=== PATIENT | female | born 1990 | race Caucasian/White ===

== ENCOUNTER → 2016-06-30 | Outpatient (CLI) | payer BC | END | disposition home or self-care (01) | LOC: LABWHC1 08:43 | PROVIDERS: ATTEND Internal Medicine Endocrinology, Diabetes & Metabolism | DX: E03.8 Other specified hypothyroidism (principal) | CPT/HCPCS: 36415; 84443 ==

== ENCOUNTER → 2016-07-18 | Outpatient (CLI) | payer BC | LOC: LABWHC1 07:14 | PROVIDERS: ATTEND Obstetrics & Gynecology Reproductive Endocrinology | DX: N97.9 Female infertility, unspecified (principal) | CPT/HCPCS: 36415; 84144 ==

== ENCOUNTER → 2016-07-26 | Outpatient (CLI) | payer BC | END | disposition home or self-care (01) | LOC: LABWHC1 16:39 | PROVIDERS: ATTEND Obstetrics & Gynecology Reproductive Endocrinology | DX: N97.9 Female infertility, unspecified (principal); N96 Recurrent pregnancy loss; E28.2 Polycystic ovarian syndrome; Z31.49 Encounter for other procreative investigation and testing | CPT/HCPCS: 36415; 84144 ==

== ENCOUNTER → 2016-08-16 | Outpatient (CLI) | payer BC | END | disposition home or self-care (01) | LOC: LABWHC1 17:01 | PROVIDERS: ATTEND Internal Medicine Endocrinology, Diabetes & Metabolism | DX: E03.9 Hypothyroidism, unspecified (principal) | CPT/HCPCS: 36415; 84443 ==

== ENCOUNTER → 2016-09-07 | Outpatient (CLI) | payer BC | END | disposition home or self-care (01) | LOC: LABWHC1 17:14 | PROVIDERS: ATTEND Obstetrics & Gynecology Reproductive Endocrinology | DX: Z31.49 Encounter for other procreative investigation and testing (principal) | CPT/HCPCS: 36415; 84144 ==

== ENCOUNTER → 2016-12-14 | Outpatient (CLI) | payer BC ==
[2016-12-14 14:06] LABS: HCG,Quantitative Serum <2.4 mIU/mL
[2016-12-14 14:22] LABS: Estradiol 41 pg/mL
== END | disposition home or self-care (01) ==
LOC: LABWHC1 06:55
PROVIDERS: ATTEND Obstetrics & Gynecology Reproductive Endocrinology
DX: Z31.49 Encounter for other procreative investigation and testing (principal)
CPT/HCPCS: 36415; 82670; 84144; 84443; 84702

== ENCOUNTER → 2016-12-20 | Outpatient (CLI) | payer BC | END | disposition home or self-care (01) | LOC: LABWHC1 15:43 | PROVIDERS: ATTEND Internal Medicine Endocrinology, Diabetes & Metabolism | DX: E03.9 Hypothyroidism, unspecified (principal) | CPT/HCPCS: 36415; 84443 ==

== ENCOUNTER → 2017-01-30 | Outpatient (CLI) | payer BC ==
[2017-01-30 15:29] LABS: Estradiol 1033.2 pg/mL
== END | disposition home or self-care (01) ==
LOC: LABWHC1 06:50
PROVIDERS: ATTEND Obstetrics & Gynecology Reproductive Endocrinology
DX: Z31.49 Encounter for other procreative investigation and testing (principal)
CPT/HCPCS: 36415; 82670; 84144

== ENCOUNTER → 2017-02-06 | Outpatient (CLI) | payer BC ==
[2017-02-06 15:55] LABS: Estradiol 36.1 pg/mL
== END | disposition home or self-care (01) ==
LOC: LABWHC1 09:33
PROVIDERS: ATTEND Obstetrics & Gynecology Reproductive Endocrinology
DX: Z31.49 Encounter for other procreative investigation and testing (principal)
CPT/HCPCS: 36415; 82670; 84144; 84443; 84702

== ENCOUNTER → 2017-04-07 | Outpatient (CLI) | payer OTHER | END | disposition home or self-care (01) | LOC: LABWHC1 10:21 | PROVIDERS: ATTEND Internal Medicine Endocrinology, Diabetes & Metabolism | DX: E03.9 Hypothyroidism, unspecified (principal) | CPT/HCPCS: 36415; 84443 ==

== ENCOUNTER → 2017-06-19 | Outpatient (CLI) | payer OTHER | END | disposition home or self-care (01) | LOC: LABWHC1 10:26 | PROVIDERS: ATTEND Internal Medicine Endocrinology, Diabetes & Metabolism | DX: E03.9 Hypothyroidism, unspecified (principal) | CPT/HCPCS: 36415; 84443 ==

== ENCOUNTER → 2017-11-17 | Outpatient (CLI) | payer OTHER | END | disposition home or self-care (01) | LOC: LABWHC1 08:51 | PROVIDERS: ATTEND Internal Medicine Endocrinology, Diabetes & Metabolism | DX: E03.8 Other specified hypothyroidism (principal) | CPT/HCPCS: 36415; 84443 ==

== ENCOUNTER → 2017-11-30 | Outpatient (CLI) | payer OTHER ==
[2017-11-30 15:09] LABS: HCT 38.4 % (34.0-46.0); HGB 12.2 gm/dL (11.4-16.0); MCH 28.2 pg (25.0-35.0); MCHC 31.8 g/dL (31.0-37.0); MCV 88.8 fL (80.0-100.0); Mean Platelet Volume 6.7; Platelet Count 365 k/uL (150-450); RBC 4.33 m/uL (3.80-5.40); RDW 12.9 % (11.5-15.5); WBC 8.8 k/uL (3.8-10.6)
[2017-11-30 15:20] LABS: Glucose 94 mg/dL (74-99)
[2017-11-30 16:01] LABS: Appearance,Urine Clear (Clear); Bilirubin,Urine Negative (Negative); Blood,Urine Negative (Negative); Color,Urine Light Yellow; Glucose,Urine (UA) Negative (Negative); Ketones,Urine Negative (Negative); Leukocyte Esterase,Urine Negative (Negative); Nitrite,Urine Negative (Negative); PH, Urine 5.5 (5.0-8.0); Protein,Urine Negative (Negative); Specific Gravity,Urine 1.008 (1.001-1.035); Urobilinogen,Urine <2.0 mg/dL (<2.0)
[2017-11-30 21:10] LABS: HIV AB P24 Non-Reactive (Non-Reactive); HIV P24 AG Non-Reactive (Non-Reactive)
[2017-12-01 06:55] LABS: Toxoplasma Antibody (IgG) <3.0 IU/mL (<7.2); Toxoplasma Antibody (IgM) <3.0 AU/mL (<8.0)
== END | disposition home or self-care (01) ==
LOC: LABWHC1 14:22
PROVIDERS: ATTEND Obstetrics & Gynecology
DX: Z34.90 Encounter for supervision of normal pregnancy, unspecified, unspecified trimester (principal); Z3A.00 Weeks of gestation of pregnancy not specified
CPT/HCPCS: 36415; 81003; 82565; 82947; 85027; 86777; 86778; 86780; 86850; 86900; 86901; 87086; 87340; 87390

== ENCOUNTER → 2017-12-15 | Outpatient (CLI) | payer OTHER ==
[2017-12-15 16:07] LABS: T4, Free (Free Thyroxine) 1.18 ng/dL (0.78-2.19)
== END | disposition home or self-care (01) ==
LOC: LABWHC1 15:10
PROVIDERS: ATTEND Obstetrics & Gynecology
DX: Z34.90 Encounter for supervision of normal pregnancy, unspecified, unspecified trimester (principal); E03.8 Other specified hypothyroidism; Z3A.00 Weeks of gestation of pregnancy not specified
CPT/HCPCS: 36415; 84439; 84443; 86762; 87340

== ENCOUNTER → 2018-01-11 | Outpatient (CLI) | payer OTHER ==
[2018-01-11 14:23] LABS: T4, Free (Free Thyroxine) 1.1 ng/dL (0.78-2.19)
== END | disposition home or self-care (01) ==
LOC: LABWHC1 10:50
PROVIDERS: ATTEND Internal Medicine Endocrinology, Diabetes & Metabolism
DX: E03.8 Other specified hypothyroidism (principal)
CPT/HCPCS: 36415; 84439; 84443

== ENCOUNTER → 2018-02-05 | Outpatient (CLI) | payer OTHER | LOC: LABWHC1 13:36 | PROVIDERS: ATTEND Internal Medicine Endocrinology, Diabetes & Metabolism | DX: E03.9 Hypothyroidism, unspecified (principal) | CPT/HCPCS: 36415; 84443 ==

== ENCOUNTER → 2018-03-09 | Outpatient (CLI) | payer OTHER | END | disposition home or self-care (01) | LOC: LABWHC1 10:58 | PROVIDERS: ATTEND Internal Medicine Endocrinology, Diabetes & Metabolism | DX: E03.9 Hypothyroidism, unspecified (principal) | CPT/HCPCS: 36415; 84443 ==

== ENCOUNTER → 2018-04-30 | Outpatient (CLI) | payer OTHER | LOC: LABWHC1 15:21 | PROVIDERS: ATTEND Internal Medicine Endocrinology, Diabetes & Metabolism | DX: E03.9 Hypothyroidism, unspecified (principal) | CPT/HCPCS: 36415; 84443 ==

== ENCOUNTER 2018-05-13 11:47 | Inpatient (IN) | payer OTHER ==
[2018-05-13] MEDS ORDERED: ACETAMINOPHEN TAB 500 MG TAB PO STA (12:28)
[2018-05-13] MEDS ORDERED: SODIUM CHLORIDE 0.9% 1,000 ML IV STA (12:28)
--- NOTE | 2018-05-13 12:35 | ED ---
Pediatric Fever HPI - General Chief Complaint: Fever Stated Complaint: High Heart Rate, Shaky Time Seen by Provider: 05/13/18 11:57 Source: patient Mode of arrival: ambulatory Limitations: no limitations - History of Present Illness Initial Comments: 27-year-old female patient presents to emergency department today with chief complaint of shaking chills, elevated heart rate, and fever. Patient states her temperature was 102.0F at home. States that for the last couple of days she has felt feverish. She is 33.5 weeks with twins. She is having some lower abdominal discomfort and low back pain but she states this has been going on for weeks. States that she has had decreased movement today. States that she has had frequent urination of small amounts. Patient does have history of kidney infection. She denies any flank pain or hematuria. Denies any nausea or vomiting. Patient has nasal congestion and cough, states that she has had this since becoming . States that she does have production of yellow sputum. Patient denies any recent rash, shortness breath, chest pain, abdominal pain, diarrhea, constipation, numbness, tingling, dizziness, weakness , headache, visual changes, or any other complaints. - Related Data Home Medications Medication Instructions Recorded Confirmed Levothyroxine Sodium [Tirosint] 112 mcg PO DAILY 05/13/18 05/13/18 Bjy-Hpob-Jyunj Acid 1 tab PO HS 05/13/18 05/13/18 [-U Capsule (formulary)] metFORMIN HCL 500 mg PO BID 05/13/18 05/13/18 Allergies Allergy/AdvReac Type Severity Reaction Status Date / Time No Known Allergies Allergy Verified 05/13/18 12:18 Review of Systems ROS Statement: Those systems with pertinent positive or pertinent negative responses have been documented in the HPI. ROS Other: All systems not noted in ROS Statement are negative. Past Medical History Past Medical History: No Reported History History of Any Multi-Drug Resistant Organisms: None Reported Additional Past Surgical History / Comment(s): reproductive surgery for fetility treatment Past Psychological History: No Psychological Hx Reported Smoking Status: Never smoker Past Alcohol Use History: None Reported Past Drug Use History: None Reported General Exam Limitations: no limitations General appearance: alert, in no apparent distress, other (This is a well- developed, well-nourished adult female patient in no acute distress. Vital signs upon presentation are temperature 98.3F, pulse 119, respirations 18, blood pressure 115/76, pulse ox 97% on room air.) Eye exam: Present: normal appearance, PERRL, EOMI. Absent: scleral icterus, conjunctival injection, periorbital swelling ENT exam: Present: normal exam, normal oropharynx, mucous membranes moist Respiratory exam: Present: normal lung sounds bilaterally. Absent: respiratory distress, wheezes, rales, rhonchi, stridor Cardiovascular Exam: Present: normal rhythm, tachycardia, normal heart sounds. Absent: systolic murmur, diastolic murmur, rubs, gallop, clicks GI/Abdominal exam: Present: normal bowel sounds, other (Gravid abdomen). Absent : distended, tenderness, guarding, rebound, rigid Neurological exam: Present: alert, oriented X3, CN II-XII intact Psychiatric exam: Present: normal affect, normal mood Skin exam: Present: warm, dry, intact, normal color. Absent: rash Course Vital Signs 05/13/18 11:49 Temperature 98.3 F Pulse Rate 119 H Respiratory 18 Rate Blood Pressure 115/76 O2 Sat by Pulse 97 Oximetry Medical Decision Making - Medical Decision Making 27-year-old female patient who is 33.5 weeks with a twin gestation presents to the emergency department today for evaluation of shaking, fever, chills. She is reporting voiding in small frequent amounts of urine. She is reporting lower abdominal pressure and low back pain which has been going on for weeks. Labs reviewed and did reveal white blood cell count of 14.3, neutrophil count of 12, AST and a mildly elevated at 51 and 61 respectively. Alkaline phosphatase was 146. Urinalysis showed a turbid appearance with 1+ protein, small, blood, large leukocyte esterase, 29 red blood cells, greater 182 white blood cells, few white blood cell clumps, 57 squamous epithelial cells , rare bacteria, and rare mucous. Influenza negative. heart tones for both fetuses were within normal ranges. We did obtain ultrasound. Patient was started on Rocephin IV. She'll be admitted to Dr. Branch with OB on consult. Patient's OBGYN is Dr. Lewis at [facility], phone number: [phone], he is comfortable having her treated here, but will be available by phone if necessary. I did discuss findings and results, plans with the patient she is agreeable. - Lab Data Result diagrams: 05/13/18 13:08 05/13/18 13:08 Lab Results 05/13/18 05/13/18 05/13/18 Range/Units 12:00 13:08 13:08 WBC 14.3 H (3.8-10.6) k/uL RBC 4.26 (3.80-5.40) m/uL Hgb 11.7 (11.4-16.0) gm/dL Hct 36.4 (34.0-46.0) % MCV 85.6 (80.0-100.0) fL MCH 27.4 (25.0-35.0) pg MCHC 32.0 (31.0-37.0) g/dL RDW 14.1 (11.5-15.5) % Plt Count 321 (150-450) k/uL Neutrophils % 84 % Lymphocytes % 9 % Monocytes % 5 % Eosinophils % 0 % Basophils % 0 % Neutrophils # 12.0 H (1.3-7.7) k/uL Lymphocytes # 1.3 (1.0-4.8) k/uL Monocytes # 0.7 (0-1.0) k/uL Eosinophils # 0.1 (0-0.7) k/uL Basophils # 0.0 (0-0.2) k/uL Sodium 135 L (137-145) mmol/L Potassium 4.4 (3.5-5.1) mmol/L Chloride 108 H (98-107) mmol/L Carbon Dioxide 19 L (22-30) mmol/L Anion Gap 8 mmol/L BUN 8 (7-17) mg/dL Creatinine 0.59 (0.52-1.04) mg/dL Est GFR (CKD-EPI)AfAm >90 (>60 ml/min/1.73 sqM) Est GFR (CKD-EPI)NonAf >90 (>60 ml/min/1.73 sqM) Glucose 97 (74-99) mg/dL Plasma Lactic Acid Sylvester (0.7-2.0) mmol/L Calcium 9.4 (8.4-10.2) mg/dL Total Bilirubin 0.5 (0.2-1.3) mg/dL AST 51 H (14-36) U/L ALT 61 H (9-52) U/L Alkaline Phosphatase 146 H (38-126) U/L Total Protein 6.0 L (6.3-8.2) g/dL Albumin 3.0 L (3.5-5.0) g/dL Urine Color Yellow Urine Appearance Turbid H (Clear) Urine pH 6.0 (5.0-8.0) Ur Specific [place] 1.013 (1.001-1.035) Urine Protein 1+ H (Negative) Urine Glucose (UA) Negative (Negative) Urine Ketones Negative (Negative) Urine Blood Small H (Negative) Urine Nitrite Negative (Negative) Urine Bilirubin Negative (Negative) Urine Urobilinogen <2.0 (<2.0) mg/dL Ur Leukocyte Esterase Large H (Negative) Urine RBC 29 H (0-5) /hpf Urine WBC >182 H (0-5) /hpf Urine WBC Clumps Few H (None) /hpf Ur Squamous Epith Cells 57 H (0-4) /hpf Urine Bacteria Rare H (None) /hpf Urine Mucus Rare H (None) /hpf Influenza Type A RNA (Not Detectd) Influenza Type B (PCR) (Not Detectd) 05/13/18 05/13/18 Range/Units 13:08 13:12 WBC (3.8-10.6) k/uL RBC (3.80-5.40) m/uL Hgb (11.4-16.0) gm/dL Hct (34.0-46.0) % MCV (80.0-100.0) fL MCH (25.0-35.0) pg MCHC (31.0-37.0) g/dL RDW (11.5-15.5) % Plt Count (150-450) k/uL Neutrophils % % Lymphocytes % % Monocytes % % Eosinophils % % Basophils % % Neutrophils # (1.3-7.7) k/uL Lymphocytes # (1.0-4.8) k/uL Monocytes # (0-1.0) k/uL Eosinophils # (0-0.7) k/uL Basophils # (0-0.2) k/uL Sodium (137-145) mmol/L Potassium (3.5-5.1) mmol/L Chloride (98-107) mmol/L Carbon Dioxide (22-30) mmol/L Anion Gap mmol/L BUN (7-17) mg/dL Creatinine (0.52-1.04) mg/dL Est GFR (CKD-EPI)AfAm (>60 ml/min/1.73 sqM) Est GFR (CKD-EPI)NonAf (>60 ml/min/1.73 sqM) Glucose (74-99) mg/dL Plasma Lactic Acid Sylvester 1.7 (0.7-2.0) mmol/L Calcium (8.4-10.2) mg/dL Total Bilirubin (0.2-1.3) mg/dL AST (14-36) U/L ALT (9-52) U/L Alkaline Phosphatase (38-126) U/L Total Protein (6.3-8.2) g/dL Albumin (3.5-5.0) g/dL Urine Color Urine Appearance (Clear) Urine pH (5.0-8.0) Ur Specific [place] (1.001-1.035) Urine Protein (Negative) Urine Glucose (UA) (Negative) Urine Ketones (Negative) Urine Blood (Negative) Urine Nitrite (Negative) Urine Bilirubin (Negative) Urine Urobilinogen (<2.0) mg/dL Ur Leukocyte Esterase (Negative) Urine RBC (0-5) /hpf Urine WBC (0-5) /hpf Urine WBC Clumps (None) /hpf Ur Squamous Epith Cells (0-4) /hpf Urine Bacteria (None) /hpf Urine Mucus (None) /hpf Influenza Type A RNA Not Detected (Not Detectd) Influenza Type B (PCR) Not Detected (Not Detectd) Disposition Clinical Impression: Pyelonephritis, Third trimester Disposition: ADMITTED IP TO THIS [facility] Condition: Serious Referrals: Brad Ballard MD [Primary Care Provider] - 1-2 days Decision to Admit Reason: Admit from EC Decision Date: 05/13/18 Decision Time: 15:01
[2018-05-13 13:22] LABS: Appearance,Urine Turbid (Clear); Bacteria,Urine Rare /hpf; Bilirubin,Urine Negative (Negative); Blood,Urine Small (Negative); Color,Urine Yellow; Glucose,Urine (UA) Negative (Negative); Ketones,Urine Negative (Negative); Leukocyte Esterase,Urine Large (Negative); Mucus,Urine Rare /hpf; Nitrite,Urine Negative (Negative); Protein,Urine 1+ (Negative); RBC,Urine 29 /hpf (0-5); Specific Gravity,Urine 1.013 (1.001-1.035); Squamous Epithelial Cell,Urine 57 /hpf (0-4); Urobilinogen,Urine <2.0 mg/dL (<2.0); WBC,Urine >182 /hpf (0-5)
[2018-05-13 13:32] LABS: Basophils % (A) 0 %; Eosinophils # (A) 0.1 k/uL (0-0.7); Eosinophils % (A) 0 %; HCT 36.4 % (34.0-46.0); HGB 11.7 gm/dL (11.4-16.0); Lymphocytes # (A) 1.3 k/uL (1.0-4.8); Lymphocytes % (A) 9 %; MCH 27.4 pg (25.0-35.0); MCV 85.6 fL (80.0-100.0); Mean Platelet Volume 7.6; Monocytes # (A) 0.7 k/uL (0-1.0); Monocytes % (A) 5 %; Neutrophils % (A) 84 %; Platelet Count 321 k/uL (150-450); RBC 4.26 m/uL (3.80-5.40); RDW 14.1 % (11.5-15.5); WBC 14.3 k/uL (3.8-10.6)
[2018-05-13 13:40] LABS: ALT 61 U/L (9-52); AST 51 U/L (14-36); Alkaline Phosphatase 146 U/L (38-126); Anion Gap 8 mmol/L; Blood Urea Nitrogen 8 mg/dL (7-17); Calcium 9.4 mg/dL (8.4-10.2); Carbon Dioxide 19 mmol/L (22-30); Chloride 108 mmol/L (98-107); Glucose 97 mg/dL (74-99); Potassium 4.4 mmol/L (3.5-5.1); Sodium 135 mmol/L (137-145); Total Bilirubin 0.5 mg/dL (0.2-1.3)
[2018-05-13] MEDS ORDERED: cefTRIAXone 2,000 MG in SODIUM CHLORIDE 0.9% 100 ML IVPB STA (14:18)
[2018-05-13] MEDS ORDERED: NALOXONE 0.4 MG/ML 1 ML VIAL IV PRN (14:58)
[2018-05-13] MEDS: SODIUM CHLORIDE 0.9% 1,000 ML IV SCH (15:34)
--- NOTE | 2018-05-13 15:47 | US ---
EXAMINATION TYPE: US OB >= 14 wk twins DATE OF EXAM: 05/13/2018 COMPARISON: NONE CLINICAL HISTORY: Pain. UTI, fever GESTATIONAL AGE / DATING Physician Established: (34 weeks/1 days) EDC: 06/27/2018 Dates by LMP: (34 weeks/1 days) EDC: 06/27/2018 Dates by First Scan: No previous at this facility Dates by Current Scan for Baby A: (33 weeks/4 days) EDC: 06/23/2018 Dates by Current Scan for Baby B: (32 weeks/6 days) EDC: 07/02/2018 GENERAL TWIN SURVEY TWIN A LOCATION in regards to maternal abd: Left TWIN B LOCATION in regards to maternal abd: Right MEMBRANE SEEN: Yes CERVICAL LENGTH (transabdominal; norm > 3.0cm): 3.7 cm TWIN A: SURVEY/BIOMETRY PLACENTA: Fundal PREVIA: No previa KIKA:? 15.5 cm?Normal PRESENTATION: Vertex LIE: Longitudinal BPD: 8.8 cm 35 weeks / 3 days HC: 31.7 cm 35 weeks / 4 days AC: 29.9 cm 33 weeks / 6 days FL: 6.5 cm 33 weeks / 5 days ESTIMATED WEIGHT IN GRAMS: 2357 grams ESTIMATED WEIGHT IN LBS/OZS: 5 lbs. 3 oz. WEIGHT PERCENTAGE BASED ON ESTABLISHED DATES: 59.8% HC/AC: 1.06 Normal FL/AC: 21.86 Normal HEART RATE: 155 bpm RHYTHM: Normal TWIN B: SURVEY/BIOMETRY PRESENTATION: Vertex LIE: Longitudinal BPD: 8.0 cm 32 weeks / 1 days HC: 30.9 cm 34 weeks / 3 days AC: 29.6 cm 33 weeks / 4 days FL: 6.3 cm 32 weeks / 5 days ESTIMATED WEIGHT IN GRAMS: 2161 grams ESTIMATED WEIGHT IN LBS/OZS: 4 lbs. 12 oz. WEIGHT PERCENTAGE BASED ON ESTABLISHED DATES: 33.5% HC/AC: 1.05 Normal FL/AC: 21.4 Normal HEART RATE: 146 bpm RHYTHM: Normal Viable twin IUP, measurements consist with dates. IMPRESSION: No complicating process seen.
[2018-05-13 18:10] VITALS: BMI 33.5
--- NOTE | 2018-05-13 19:00 | P.OBCN ---
History of Present Illness Consult date: 05/13/18 Reason for consult: medical complication (Pyelonephritis in -twin gestation) Chief complaint: fever, flank pain History of present illness: 27 year old at 33 weeks 4 days with twin gestation [facility] with right flank pain and fever up to 102* at home. She also was having the shakes. She has had pyelonephritis in the past with fever/chills like this and knew to come to seek treatment. She is feeling movement, not feeling contractions but is having occasional tightening. No vaginal bleeding or loss of fluid. heart tones show baselines of 130's moderate variability and reactive NSTs. US was one and the babies are vertex; A is 5#3oz, B is 4#12 oz. Review of Systems All systems: negative Constitutional: Reports chills, Reports fever Eyes: denies blurred vision, denies pain Ears, nose, mouth and throat: Denies headache, Denies sore throat Cardiovascular: Denies chest pain, Denies shortness of breath Respiratory: Denies cough Gastrointestinal: Denies abdominal pain, Denies diarrhea, Denies nausea, Denies vomiting Genitourinary: Denies dysuria, Denies hematuria Musculoskeletal: Reports low back pain, Denies myalgias Integumentary: Denies pruritus, Denies rash Neurological: Denies numbness, Denies weakness Psychiatric: Denies anxiety, Denies depression Endocrine: Reports weight change, Denies fatigue Past Medical History Past Medical History: Thyroid Disorder Additional Past Medical History / Comment(s): hx PCOS. OB history: These twins were conceived via IVF and she sees an OB out of [facility]. bloodtype B +. History of Any Multi-Drug Resistant Organisms: None Reported Additional Past Surgical History / Comment(s): reproductive surgery for fetility treatment; laparoscopic tuboplasty, cyst removal, laser vaporization of endometriosis, removal of uterine septum. Past Psychological History: No Psychological Hx Reported Smoking Status: Never smoker Past Alcohol Use History: None Reported Past Drug Use History: None Reported - Past Family History Father Family Medical History: No Reported History Medications and Allergies Home Medications Medication Instructions Recorded Confirmed Type Levothyroxine Sodium [Tirosint] 112 mcg PO AC-BRKFST 05/13/18 05/13/18 History Tbg-[id number]-[id number] Acid 1 tab PO HS 05/13/18 05/13/18 History [-U Capsule (formulary)] metFORMIN HCL 1,000 mg PO HS 05/13/18 05/13/18 History Allergies Allergy/AdvReac Type Severity Reaction Status Date / Time No Known Allergies Allergy Verified 05/13/18 18:03 Exam Osteopathic Statement: *. No significant issues noted on an osteopathic structural exam other than those noted in the History and Physical/Consult. Vital Signs Temp Pulse Pulse Resp BP BP Pulse Ox 05/13/18 18:04 98.2 F 87 18 121/75 99 05/13/18 16:41 97.4 F L 87 18 121/77 98 05/13/18 15:50 97.6 F 05/13/18 11:49 98.3 F 119 H 18 115/76 97 Intake and Output 05/13/18 05/13/18 05/13/18 06:59 14:59 22:59 Other: Weight 88.451 kg 88.451 kg Heart: Regular rate and rhythm Lungs: Clear to auscultation bilaterally Abdomen: Soft, nontender Extremities: Negative Homans sign Results Result Diagrams: 05/13/18 13:08 05/13/18 13:08 Abnormal Lab Results - Last 24 Hours (Table) 05/13/18 05/13/18 05/13/18 Range/Units 12:00 13:08 13:08 WBC 14.3 H (3.8-10.6) k/uL Neutrophils # 12.0 H (1.3-7.7) k/uL Sodium 135 L (137-145) mmol/L Chloride 108 H (98-107) mmol/L Carbon Dioxide 19 L (22-30) mmol/L AST 51 H (14-36) U/L ALT 61 H (9-52) U/L Alkaline Phosphatase 146 H (38-126) U/L Total Protein 6.0 L (6.3-8.2) g/dL Albumin 3.0 L (3.5-5.0) g/dL Urine Appearance Turbid H (Clear) Urine Protein 1+ H (Negative) Urine Blood Small H (Negative) Ur Leukocyte Esterase Large H (Negative) Urine RBC 29 H (0-5) /hpf Urine WBC >182 H (0-5) /hpf Urine WBC Clumps Few H (None) /hpf Ur Squamous Epith Cells 57 H (0-4) /hpf Urine Bacteria Rare H (None) /hpf Urine Mucus Rare H (None) /hpf Microbiology - Last 24 Hours (Table) 05/13/18 12:00 Urine Culture - Preliminary Urine,Voided Assessment and Plan (1) Pyelonephritis Current Visit: Yes Status: Acute Code(s): N12 - TUBULO-INTERSTITIAL NEPHRITIS, NOT SPCF ACUTE OR CHRONIC SNOMED Code(s): 31309142 (2) Twin gestation in third trimester Current Visit: Yes Status: Acute Code(s): O30.003 - TWIN PREG, UNSP NUM PLCNTA & AMNIO SACS, THIRD TRIMESTER SNOMED Code(s): 00536660 Plan: 1. Daily NST 2. Continue Rocephin 3. Weight urine and blood cultures 4. Treat fever with Tylenol or Ofirmev as needed 5. Regular diet 6. KVO IV fluids
[2018-05-13] MEDS: PRENATAL VIT-IRON-FOLIC ACID 1 EACH CAP PO SCH (21:01)
[2018-05-13] MEDS: metFORMIN 500 MG TAB PO SCH (21:01)
[2018-05-13] MEDS ORDERED: AMPICILLIN 2,000 MG in SODIUM CHLORIDE 0.9% 100 ML IVPB STA (23:51)
--- NOTE | 2018-05-14 00:07 | HP ---
HISTORY AND PHYSICAL DATE OF SERVICE: 05/13/2018. DATE OF ADMISSION: 05/13/2018. PRESENTING COMPLAINT: Fever. HISTORY OF PRESENTING COMPLAINT: This is a pleasant 27-year-old patient of Dr. Ballard whose chronic stable medical conditions include twin at 33 weeks, hypothyroidism, and polycystic ovarian syndrome for which she takes metformin. The patient had IVF induced twins that are doing well in the 33rd week of . The patient is followed by Dr. Aguilar out of [facility]. The patient for a day or so started just feeling unwell and had a temperature, initially 98.5 but took it again in the wheel shop supervisor and it came up to 102. The patient started shaking and feeling cold. At baseline the patient has congestion which is not new for her. The patient normally has urinary frequency again, which is not new for her. The patient presented to the ER. The patient was found to have rather infected-appearing urine. Infectious Disease and BENEFITS SALES CONSULTANT was consulted. The patient was started on IV ceftriaxone and admitted for the same. The patient otherwise has had a rather healthy . REVIEW OF SYSTEMS: CONSTITUTIONAL: Fever, chills. HEENT: None. RESPIRATORY: None. CARDIOVASCULAR: None. GASTROINTESTINAL: None. GENITOURINARY: As above. MUSCULOSKELETAL: None. DERMATOLOGIC: None. HEMATOLOGIC: None. PSYCHIATRY: None. NEUROLOGIC: None. PAST MEDICAL HISTORY: Polycystic ovarian syndrome, hypothyroidism, twin from IVF. PAST SURGICAL HISTORY: Laparoscopy, tuboplasty, cyst removed, laser vaporization of endometriosis, removal of uterine septum. SOCIAL HISTORY: Patient is . Does not smoke or drink alcohol or use any recreational drugs. 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 FAMILY HISTORY: Reviewed, noncontributory to presentation. HOME MEDICATIONS: 1. Metformin 1000 mg at bedtime. 2. 112 mcg before breakfast. 3. capsule 1 tablet p.o. at bedtime. ALLERGIES: None. PHYSICAL EXAMINATION: Temperature 98.3, pulse 109, respirations 18, blood pressure 105/76, pulse ox 97% on room air. The patient did record a temperature of 102 at home. GENERAL APPEARANCE: Well built, BMI. 33.5, lying in bed, awake. EYES: Pupils equal. Conjunctivae normal. HEENT: External nose and ears normal. NECK: JVD not raised. Mass not palpable. Respiratory effort normal. LUNGS: Fair air entry. CARDIOVASCULAR: First and second sounds normal. No edema. ABDOMEN: Distended with striae gravidarum. Some tenderness in the flanks. LYMPHATIC; No lymph node palpable. PSYCHIATRY: Alert and oriented x3. Mood and affect normal. NEUROLOGIC: Pupils equal. Cranial nerves grossly intact. Power and sensation grossly intact. INVESTIGATIONS: White count 14.8, hemoglobin 9.7, left shift. Potassium 4.4. BUN and creatinine normal. AST 51, ALT 61, albumin 3. UA positive for leukocyte esterase, WBC, 57. ultrasound no complications reported. ASSESSMENT: 1. Acute urinary tract infection from cystitis with questionable pyelonephritis. There is some tenderness in the flank and could be due to itself. 2. Twin at 33 weeks from in vitro fertilization. 3. Hypothyroidism. 4. Polycystic ovarian syndrome. PLAN: Patient is on IV ceftriaxone. ID was consulted from the ER. The patient is given some IV fluids. Home medications will be resumed. Also consultation was made to horizontal boring mill operator on-call. Care was discussed with the patient, questions were answered. Repeat labs in the morning and see how the patient fares. We will also repeat a CMP. MMODL / IJN: [id number] /
[2018-05-14] MEDS: BETAMET ACET-BETAMETH SOD PHOS 6 MG/ML VIAL IM SCH ×2 (00:19→19:10)
[2018-05-14] MEDS ORDERED: SIMETHICONE 80 MG CHEWABLE PO PRN (01:15)
[2018-05-14] MEDS ORDERED: ZOLPIDEM 5 MG TAB PO PRN (01:15)
[2018-05-14] MEDS ORDERED: BENZOCAINE/MENTHOL SPRAY 1 GM/SPRAY AEROSOL TOPICAL PRN (01:15)
[2018-05-14] MEDS ORDERED: LANOLIN CREAM 5 GM TUBE TOPICAL PRN (01:15)
[2018-05-14] MEDS ORDERED: diphenhydrAMINE 50 MG CAP PO PRN (01:15)
[2018-05-14] MEDS ORDERED: diphenhydrAMINE 50 MG/ML 1 ML VIAL IVP PRN ×2 (01:15)
[2018-05-14] MEDS ORDERED: OXYTOCIN 20 UNITS/1000 ML NS 1,000 ML IV SCH (01:15)
[2018-05-14] MEDS ORDERED: IBUPROFEN 600 MG TAB PO PRN (01:15)
[2018-05-14] MEDS ORDERED: HYDROCORTISONE 2.5% RECTAL CREAM 30 GM TUBE RECTAL PRN (01:15)
[2018-05-14] MEDS ORDERED: WITCH HAZEL 1 EACH MED..PAD TOPICAL PRN (01:15)
[2018-05-14] MEDS ORDERED: diphenhydrAMINE 25 MG CAP PO PRN (01:15)
[2018-05-14] MEDS: ACETAMINOPHEN TAB 325 MG TAB PO PRN (01:23)
--- NOTE | 2018-05-14 01:26 | P.PROBDLV ---
Vaginal Delivery Note - . Vaginal Delivery Note: 27-year-old presented at 33 weeks and 4 days with twin gestation. She was admitted for pyelonephritis. While here she went into labor. Her cervix was 4-5 cm dilated, her percent effaced, and -2 station when she started complaining of painful contractions. She is treasure every few minutes. heart tones were tachycardic in the 180s. Amniotomy was performed and within 15 minutes her cervix was completely dilated at 00:33. She pushed a few times and baby A delivered over intact perineum at 00:38 a.m. Head delivered OA , anterior shoulder delivered gentle downward guidance followed by posterior shoulder and rest of body. Nose mouth bulb suctioned, cord clamped and cut, handed off to waiting nurses and chair mender. Apgars 4 at 1 minute, 5 at 5 minutes and 7 at 10 minutes. I then [place] to see if the baby B was still vertex and she was. She was and -2 station and I had her push down. Amniotomy was performed at this time. When a Contraction came she pushed once delivered a viable male B infant over intact perineum at 00:43 a.m. Head delivered OA, anterior shoulder delivered gentle downward guidance of the posterior shoulder and rest of body. Nose and mouth bulb suctioned, cord clamped and cut, infant handed to waiting nurses and chair mender. Apgars 4 at 1 minute, 6 at 5 minutes , and 7 at 10 minutes. The placentas were delivered spontaneously, intact with three-vessel cord at 00:49 a.m. Vagina, cervix, and perineum were inspected. First-degree midline laceration was repaired with 3-0 Vicryl. The patient was noted to be bleeding significantly. I did Express quite a few fluid clots and give Methergine 0.2 mg IM. This improved her bleeding. EBL 500 mL.
[2018-05-14] MEDS: ACETAMINOPHEN IV (For NPO) 1,000 MG in EMPTY BAG 1 BAG IVPB SCH ×4 (01:52→20:08)
[2018-05-14] MEDS: metroNIDAZOLE-NS PMX 500 MG in SALINE 1 100ML.BAG IVPB SCH ×3 (02:03→17:52)
[2018-05-14 02:30] LABS: HCT 31.1 % (34.0-46.0); HGB 10.1 gm/dL (11.4-16.0); MCH 28.2 pg (25.0-35.0); MCHC 32.3 g/dL (31.0-37.0); MCV 87.2 fL (80.0-100.0); Mean Platelet Volume 8.2; Platelet Count 207 k/uL (150-450); RBC 3.57 m/uL (3.80-5.40); RDW 14.2 % (11.5-15.5); WBC 7.8 k/uL (3.8-10.6)
[2018-05-14] MEDS: SODIUM CHLORIDE 0.9% 1,000 ML IV SCH (03:41)
[2018-05-14] MEDS ORDERED: AMPICILLIN 1,000 MG in SODIUM CHLORIDE 0.9% 50 ML IVPB SCH ×3 (04:00)
[2018-05-14 06:27] LABS: Basophils # (A) 0.1 k/uL (0-0.2); Basophils % (A) 0 %; Eosinophils # (A) 0.1 k/uL (0-0.7); Eosinophils % (A) 1 %; HCT 28.4 % (34.0-46.0); HGB 9.2 gm/dL (11.4-16.0); Lymphocytes # (A) 0.5 k/uL (1.0-4.8); Lymphocytes % (A) 2 %; MCH 27.9 pg (25.0-35.0); MCHC 32.5 g/dL (31.0-37.0); Mean Platelet Volume 9.3; Monocytes # (A) 0.6 k/uL (0-1.0); Monocytes % (A) 3 %; Neutrophils # (A) 22.8 k/uL (1.3-7.7); Neutrophils % (A) 94 %; Platelet Count 219 k/uL (150-450); RDW 14.3 % (11.5-15.5); WBC 24.3 k/uL (3.8-10.6)
[2018-05-14 06:43] LABS: Albumin 2.2 g/dL (3.5-5.0); Calcium 8.5 mg/dL (8.4-10.2); Potassium 3.5 mmol/L (3.5-5.1); Total Bilirubin 0.3 mg/dL (0.2-1.3); Total Protein 4.7 g/dL (6.3-8.2)
[2018-05-14] MEDS: SENNOSIDES-DOCUSATE SODIUM 1 EACH TAB PO SCH ×2 (07:55→19:37)
[2018-05-14] MEDS: cefTRIAXone 2,000 MG in SODIUM CHLORIDE 0.9% 100 ML IVPB SCH (09:07)
[2018-05-14] MEDS: LEVOTHYROXINE SODIUM 112 MCG PO SCH (12:10)
[2018-05-14] MEDS: metFORMIN 500 MG TAB PO SCH (21:00)
[2018-05-14] MEDS: PRENATAL VIT-IRON-FOLIC ACID 1 EACH CAP PO SCH (21:01)
[2018-05-14] MEDS: LACTATED RINGERS 1,000 ML IV SCH (21:59)
[2018-05-14 22:20] LABS: Anion Gap 5 mmol/L; Blood Urea Nitrogen 11 mg/dL (7-17); Calcium 8.4 mg/dL (8.4-10.2); Carbon Dioxide 19 mmol/L (22-30); Chloride 110 mmol/L (98-107); Glucose 183 mg/dL (74-99); Potassium 4.5 mmol/L (3.5-5.1); Sodium 134 mmol/L (137-145)
--- NOTE | 2018-05-15 01:14 | PN ---
PROGRESS NOTE DATE OF SERVICE: 05/14/2018. PRESENTING COMPLAINT: Fever. INTERVAL HISTORY: This is a very pleasant patient admitted with acute UTI with cystitis and possible pyelonephritis. Did deliver both the twins yesterday and both the twins were boys, were moved to [facility] in [place]. The patient is using a breast suction pump for the milk. Fevers and chills but otherwise, overall much better except the patient's white count has bumped up today. The patient had a grade 1 tear. It was a vaginal delivery. Tolerating a diet, afebrile. REVIEW OF SYSTEMS: Done for constitutional, cardiovascular, GI, pulmonary; relevant findings as above. CURRENT MEDICATIONS: Reviewed that include IV ceftriaxone and Flagyl. EXAMINATION: Afebrile, pulse 98, respirations 16, blood pressure 102/63, pulse ox . GENERAL APPEARANCE: Sitting in bed comfortable. EYES: Pupils equal. Conjunctivae normal. NECK: JVD not raised. Mass not palpable. Respiratory effort normal. LUNGS: Clear. CARDIOVASCULAR: 1st and 2nd sounds normal. No edema. ABDOMEN: Slightly distended. No tenderness in the flank. PSYCHIATRY: Alert and oriented x3. Mood and affect normal. INVESTIGATIONS: White count 24.3, hemoglobin 9.2, potassium 3.5, BUN 11, creatinine 1.4. ASSESSMENT: 1. Acute urinary tract infection with cystitis/acute pyelonephritis. Clinically looking better, though patient has an increased white count. 2. Twin with 2 boys delivered vaginally yesterday from in vitro fertilization. 3. Hypothyroidism. 4. Polycystic ovarian syndrome. 5. Acute rise in patient's creatinine. We will recheck the same to make sure it is relevant in the context. We will hold off the patient's Motrin, give some IV fluids and repeat BMP right now. MMODL / IJN: [id number] /
[2018-05-15] MEDS: metroNIDAZOLE-NS PMX 500 MG in SALINE 1 100ML.BAG IVPB SCH ×3 (02:14→17:59)
[2018-05-15 07:15] LABS: HCT 22.7 % (34.0-46.0); MCH 28.3 pg (25.0-35.0); MCHC 32.6 g/dL (31.0-37.0); MCV 86.8 fL (80.0-100.0); Mean Platelet Volume 8.8; Platelet Count 228 k/uL (150-450); RBC 2.62 m/uL (3.80-5.40); RDW 14.6 % (11.5-15.5); WBC 37.3 k/uL (3.8-10.6)
[2018-05-15 07:16] LABS: HGB 7.4 gm/dL (11.4-16.0)
[2018-05-15 07:19] LABS: Anion Gap 5 mmol/L; Blood Urea Nitrogen 11 mg/dL (7-17); Calcium 8.8 mg/dL (8.4-10.2); Carbon Dioxide 22 mmol/L (22-30); Chloride 111 mmol/L (98-107); Glucose 95 mg/dL (74-99); Potassium 4.1 mmol/L (3.5-5.1); Sodium 138 mmol/L (137-145)
[2018-05-15] MEDS: LEVOTHYROXINE SODIUM 112 MCG PO SCH (08:03)
[2018-05-15] MEDS: cefTRIAXone 2,000 MG in SODIUM CHLORIDE 0.9% 100 ML IVPB SCH (08:03)
[2018-05-15] MEDS: SENNOSIDES-DOCUSATE SODIUM 1 EACH TAB PO SCH ×2 (08:03→20:37)
--- NOTE | 2018-05-15 08:39 | CONS ---
CONSULTATION DATE OF SERVICE: 05/14/2018 REASON FOR CONSULTATION: Fever, pyelonephritis, third trimester . HISTORY OF PRESENT ILLNESS: The patient is a 27-year-old female who is 33 weeks , presented to the ER at [facility] yesterday with the chief complaint of shaking chills, temperature 102 degrees Fahrenheit. The patient says her symptoms started on Monday. However, she took a Tylenol. However, the next day she did have a fever with rigors and chills. The patient has been complaining of some low back pain and discomfort. Moreover, dull aching pain is 4-5 out of 10. No radiation. She felt nauseated but no vomiting. Some frequency feeling with no burning or suprapubic pain. With these symptoms, the patient did present to the [facility] ER. On arrival to the ER, the patient was afebrile. Subsequently, did spike a fever of 102 degrees Fahrenheit. The patient has been tachycardic and did have elevated white count 14.3. The patient's UA was positive with large leukocyte esterase with more than 2 WBC. The patient influenza serology was negative. She was admitted to the hospital after discussing the case with me by the ER physician. The patient was given Rocephin 2 g. The patient has tolerated that well that night/district representative. The patient did have a spontaneous vaginal delivery of 2 twins which have been transferred to the outside facility. The patient's fever has resolved. She is breathing more comfortably. Some nausea, no vomiting or any diarrhea. REVIEW OF SYSTEMS: Positive points have been mentioned in HPI, the rest of the system has been negative. PAST MEDICAL HISTORY: No medical illnesses. PAST SURGICAL HISTORY: Surgery for foot infection. SOCIAL HISTORY: Denies smoking, drinking, or drug use. FAMILY HISTORY: No pertinent findings noticed. ALLERGIES: No known drug allergies. MEDICATION: Medications include the patient is currently on Tylenol, Rocephin 2 g daily, Benadryl, lanolin, lactated Ringer, metformin, Flagyl, Narcan, levothyroxine and Ambien. PHYSICAL EXAMINATION: Blood pressure is 102/70 with a pulse of 100, temperature 97.4 T-max 103. She is 92% on room air. GENERAL DESCRIPTION: She is a ( ) female lying in bed in no distress. No tachypnea or accessory muscle for respiration use. HEENT: Shows slight pallor. No scleral icterus. Oral mucosa is dry. No pharyngeal erythema or thrush. NECK: Trachea central. No thyromegaly. LUNGS: Unlabored breathing. Clear to auscultation anteriorly. No wheeze or crackle. HEART: S1, S2. Regular rate and rhythm. ABDOMEN: Soft, nontender. No guarding or rigidity. No organomegaly. EXTREMITIES: No edema of the feet. SKIN: No rash or mass palpable. NEUROLOGICAL: Patient is awake, alert, oriented and affect normal. LABS: Hemoglobin 9.1, white count 4.3, BUN of 11, creatinine 1.40. Liver enzymes slightly elevated. Urine was positive for large leukocyte esterase, more than 2 WBC. Influenza serology is negative. DIAGNOSTIC IMPRESSION AND PLAN: Patient admitted to the hospital with sepsis and the patient did have fever of 103 Fahrenheit. Did have tachycardia, elevated white count and significantly positive UA. Likely, acute pyelonephritis. Patient at this time will be treated with antibiotics to cover for the gram-negative kendrick in this patient who did not have any history of ( ) pathogen such as E coli. PLAN: 1. Rocephin 2 g IV piggyback daily. 2. IV fluid. If his white count remains to be elevated and creatinine remains to be elevated, would recommend obtaining a ultrasound of the kidneys and bladder area. 3. We will follow up on clinical condition and further adjust medication if needed. Thank you for this consultation. I will follow this patient along with you. MMODL / IJN: [id number] /
[2018-05-15 11:21] LABS: ALT 61 U/L (9-52); AST 50 U/L (14-36)
--- NOTE | 2018-05-15 11:23 | P.PNOBGVD ---
Subjective - Subjective Principal diagnosis: S/P NVD PPD #1 Interval history: Pt seen and examined. feeling well today. Afebrile over 24 hours. She is not dizzy or short of breath with standing or walking. no headache. Her hemoglobin is 7.4 today which I am attributing to her pp hemorrhage at the time immediately following delivery when I had to give methergine. Her WBC count increased today. I will repeat a lactic acid level and repeat liver enzymes since they were up yesterday(possibly from the vomitting and blood loss of delivery). Patient reports: Reports appetite normal, Reports voiding normally, Reports pain well controlled, Reports ambulating normally Objective - Latest Vital Signs Latest vital signs: Vital Signs Temp Pulse Resp BP Pulse Ox 05/15/18 08:00 98.0 F 103 H 19 114/70 99 05/15/18 00:00 97.5 F L 86 14 89/55 05/14/18 19:29 97.4 F L 100 16 102/70 05/14/18 15:50 97.5 F L 90 16 109/64 05/14/18 12:00 97.6 F 98 16 102/63 Intake and Output 05/14/18 05/15/18 05/15/18 22:59 06:59 14:59 Intake Total 600 Balance 600 Intake: Oral 600 Other: # Voids 1 1 - Exam Lungs: bilateral: normal Chest: Normal S1, Normal S2 Extremities: Present: normal Abdomen: Present: normal appearance, soft Uterus: Present: normal, firm - Labs Labs: Abnormal Lab Results - Last 24 Hours (Table) 05/14/18 05/15/18 05/15/18 Range/Units 21:40 06:29 06:29 WBC 37.3 H (3.8-10.6) k/uL RBC 2.62 L (3.80-5.40) m/uL Hgb 7.4 L D (11.4-16.0) gm/dL Hct 22.7 L (34.0-46.0) % Sodium 134 L (137-145) mmol/L Chloride 110 H 111 H (98-107) mmol/L Carbon Dioxide 19 L (22-30) mmol/L Glucose 183 H (74-99) mg/dL Microbiology - Last 24 Hours (Table) 05/13/18 12:00 Urine Culture - Final Urine,Voided 05/13/18 15:35 Blood Culture - Preliminary Blood No Growth after 24 hours Assessment and Plan (1) Pyelonephritis Current Visit: Yes Status: Acute Code(s): N12 - TUBULO-INTERSTITIAL NEPHRITIS, NOT SPCF ACUTE OR CHRONIC SNOMED Code(s): 75796204 (2) Twin gestation in third trimester Current Visit: Yes Status: Resolved Code(s): O30.003 - TWIN PREG, UNSP NUM PLCNTA & AMNIO SACS, THIRD TRIMESTER SNOMED Code(s): 49003607 (3) History of delivery Current Visit: Yes Status: Acute Code(s): Z87.51 - PERSONAL HISTORY OF PRE- TERM LABOR SNOMED Code(s): 123248586 Plan: 1. check labs as above 2. cont abx 3. possible d/c home
[2018-05-15] MEDS: ACETAMINOPHEN TAB 325 MG TAB PO PRN (12:46)
[2018-05-15] MEDS: PIPERACILLIN-TAZOBACTAM 3.375 GM in SODIUM CHLORIDE 0.9% 100 ML IVPB SCH ×2 (13:45→21:34)
[2018-05-15] MEDS: IOPAMIDOL-300 CONTRAST 30 ML VIAL (ORAL USE) PO PRN ×2 (15:45→16:46)
[2018-05-15 16:05] VITALS: RESP 18
[2018-05-15] MEDS: LACTATED RINGERS 1,000 ML IV SCH (17:59)
--- NOTE | 2018-05-15 18:01 | CT ---
EXAMINATION TYPE: CT abdomen pelvis w con DATE OF EXAM: 05/15/2018 COMPARISON: None HISTORY: leukocytosis, pelvic pain post . CT DLP: 1068.7 mGycm Automated exposure control for dose reduction was used. TECHNIQUE: Helical acquisition of images was performed from the lung bases through the pelvis. CONTRAST: Performed with Oral Contrast and with IV Contrast, patient injected with 100 mL of Isovue 300. FINDINGS: Lung bases are clear. There is no pleural effusion. Heart size is normal. There is no pericardial eff usion. Liver spleen pancreas gallbladder appear normal. Bile ducts are not dilated. Stomach is large. There is no adrenal mass. Kidneys show satisfactory contrast opacification. There is mild fullness of the r enal collecting systems. Ureters are not dilated. There is no retroperitoneal adenopathy. There is en larged uterus tilted to the right side. There is high attenuation in the right lateral wall and uteri ne fundus. It is not clear if this is hemorrhage or related to myometrial enhancement. There is some enlargement of the endometrial cavity with mixed attenuation. This measures 3.5 cm. There is no evidence of a bowel obstruction. There is no free air. There is no ascites. Bladder diste nds smoothly. There is no sign of pelvic lymphadenopathy. There are some varicose veins in the pelvis on the right side adjacent to the uterus. The bony pelvis is intact. IMPRESSION: THERE IS MIXED ATTENUATION WITHIN THE ENLARGED ENDOMETRIAL CAVITY CONSISTENT WITH HEMORRHAGE AND FLUI D. ENDOMETRITIS IS POSSIBLE. RETAINED PRODUCTS IS POSSIBLE. ENHANCEMENT ON THE RIGHT LATERAL WALL OF THE UTERINE FUNDUS AND RIGHT ADNEXAL REGION CONSISTENT WITH VARICES. MILD HYDRONEPHROSIS BILATERALLY CONSISTENT WITH MILD HYDRONEPHROSIS OF . I DO NOT SUSPECT RE NAL OBSTRUCTION.
[2018-05-15] MEDS: PRENATAL VIT-IRON-FOLIC ACID 1 EACH CAP PO SCH (21:35)
[2018-05-16] MEDS: metroNIDAZOLE-NS PMX 500 MG in SALINE 1 100ML.BAG IVPB SCH ×2 (02:02→11:05)
[2018-05-16] MEDS: PIPERACILLIN-TAZOBACTAM 3.375 GM in SODIUM CHLORIDE 0.9% 100 ML IVPB SCH ×2 (05:39→13:00)
--- NOTE | 2018-05-16 06:39 | PN ---
PROGRESS NOTE DATE OF SERVICE: 05/15/2018 PRESENTING COMPLAINT: Fever. INTERVAL HISTORY: Patient presented with acute UTI with cystitis and possible pyelonephritis. The patient did deliver twins on 05/14/2018, both were transferred to [facility] in [place], 33 weeks. The patient using a breast suction pump for the milk. The patient overall feels much better. No fever. No chills. Tolerating a diet. No abdominal pain. No flank pain. With the white count has gone up, the patient has been on IV ceftriaxone. Overall feels much better. REVIEW OF SYSTEMS: Done for constitutional, cardiovascular, GI, pulmonary; relevant findings as above. CURRENT MEDICATIONS: Current medications are reviewed that include IV ceftriaxone, Flagyl. PHYSICAL EXAMINATION: On examination, temperature 97.8, pulse 105, respiratory 20, blood pressure 115/64, pulse ox 96% on room air. GENERAL APPEARANCE: Sitting up in bed, appears comfortable. EYES: Pupils equal. Conjunctivae normal. NECK: JVD not raised. Mass not palpable. RESPIRATORY: Effort . Lungs are clear. CARDIOVASCULAR: First and second sounds normal. No edema. ABDOMEN: Soft. Liver and spleen not palpable. No tenderness in the flank. PSYCHIATRY: Alert and oriented x3. Mood and affect cheerful. INVESTIGATIONS: White count 37.3, hemoglobin 7.4. ASSESSMENT: 1. Acute urinary tract infection with cystitis/acute on presentation with clinical improvement except the white count has been up. 2. Leukocytosis, could purely be from the and delivery itself could be reactive as clinically patient overall looks much better with no fever. No other clinical findings. 3. Twin with 2 boys delivered at 33 weeks of age from in vitro fertilization transferred to [facility]. 4. Hypothyroidism. 5. Polycystic ovarian syndrome. PLAN: Care was discussed with the patient and Dr. Jonas. Will continue with the antibiotics. The patient vaginally is not having any symptoms and clinically looks rather , to be on the safer side will just follow. Dr. Jonas is planning to do a CT scan today to look for any other source. MMODL / IJN: [id number] /
--- NOTE | 2018-05-16 07:21 | PN ---
PROGRESS NOTE DATE OF SERVICE: 05/15/2018 REASON FOR FOLLOW UP: 1. Pyelonephritis. 2. Leukocytosis. INTERVAL HISTORY: The patient is afebrile. She has been breathing comfortably. Denies any chest pain or shortness of breath or cough. Very minimal lower abdominal pain, more of a dull aching 3 to 4/10, and no radiation. The patient denies any nausea, vomiting and no diarrhea. REVIEW OF SYSTEMS: Positive points have been mentioned in HPI ( ) has been negative. Medications reviewed. PHYSICAL EXAMINATION: Blood pressure 109/65 with a pulse of 105, temperature of 97.4, she is 98% on room air. General description is a young female lying in bed in no distress. HEENT examination: Pallor. No scleral icterus. Oral mucosa is dry. Neck: Trachea central, no thyromegaly. Lungs: Unlabored breathing clear to auscultation. No wheeze or crackle. Heart: S1, S2. Regular rate and rhythm. Abdomen: Soft, tender in lower quadrant area. Extremities: No edema of feet. Skin examination: No rash or mass palpable. Neurologic: The patient is awake, alert, oriented. Mood affect normal. LABS: Hemoglobin 10.4, white count 7.3, BUN of 11, creatinine 0.58. Lipase was 2.8. DIAGNOSTIC IMPRESSION AND PLAN: Patient admitted to the hospital with a fever and likely pyelonephritis, significantly positive UA in this patient who was in the third trimester of . Subsequently did have a spontaneous vaginal delivery of twins. Post delivery the patient did have significant jump in her white count and also elevated lactic acid. Blood cultures were repeated and antibiotic ( ) by addition of IV Zosyn. Rocephin was discontinued. A CT of abdomen and pelvis was ordered, which is there is a possibility of endometritis versus retained products of conception. Did discuss it with the patient RN to communicate the CT findings to the OB. We will keep the patient on Zosyn at this point and repeat CBC tomorrow and continue supportive care. MMODL / IJN: [id number] /
[2018-05-16 07:58] LABS: Basophils # (A) 0.1 k/uL (0-0.2); Basophils % (A) 0 %; Eosinophils # (A) 0.2 k/uL (0-0.7); Eosinophils % (A) 1 %; HCT 22.2 % (34.0-46.0); HGB 7.2 gm/dL (11.4-16.0); Lymphocytes # (A) 3.7 k/uL (1.0-4.8); Lymphocytes % (A) 12 %; MCH 28.2 pg (25.0-35.0); MCHC 32.6 g/dL (31.0-37.0); MCV 86.6 fL (80.0-100.0); Mean Platelet Volume 8.7; Monocytes % (A) 3 %; Neutrophils # (A) 26.1 k/uL (1.3-7.7); Neutrophils % (A) 83 %; Platelet Count 282 k/uL (150-450); RBC 2.56 m/uL (3.80-5.40); RDW 14.4 % (11.5-15.5); WBC 31.6 k/uL (3.8-10.6)
[2018-05-16 08:17] LABS: ALT 45 U/L (9-52); AST 24 U/L (14-36); Albumin 2.2 g/dL (3.5-5.0); Alkaline Phosphatase 73 U/L (38-126); Anion Gap 5 mmol/L; Bilirubin,Unconjugated 0.1 mg/dL (0.0-1.1); Blood Urea Nitrogen 13 mg/dL (7-17); Calcium 8.2 mg/dL (8.4-10.2); Carbon Dioxide 24 mmol/L (22-30); Chloride 109 mmol/L (98-107); Glucose 88 mg/dL (74-99); Potassium 4.1 mmol/L (3.5-5.1); Sodium 138 mmol/L (137-145); Total Bilirubin <0.1 mg/dL (0.2-1.3); Total Protein 4.6 g/dL (6.3-8.2)
[2018-05-16] MEDS: LEVOTHYROXINE SODIUM 112 MCG PO SCH (08:23)
[2018-05-16] MEDS: SENNOSIDES-DOCUSATE SODIUM 1 EACH TAB PO SCH (08:23)
[2018-05-16 08:29] LABS: Bilirubin, Delta <0.0 mg/dL (0.0-0.2)
[2018-05-16 08:30] VITALS: PULSE 94
[2018-05-16] MEDS ORDERED: FERROUS SULFATE 325 MG TAB PO SCH (09:30)
--- NOTE | 2018-05-16 09:34 | P.PNOBGVD ---
Subjective - Subjective Principal diagnosis: S/P NVD twins PPD #2 Interval history: Pt seen and examined. She is feeling well today. Did have some cold sores pop up yesterday-does have a history when she is under stress. I will order acyclovir for her. urine and blood cultures were negative. wbc count is decreasing. hemoglobin is stable. CT yesterday was neg-possible endomeritis which is likely, the possible retained products is likely clots seen in the uterus from active bleeding as is normal after delivery. The zosyn and metronidazole are working and pt feels great. I would rec discharge today. Patient reports: Reports appetite normal, Reports voiding normally, Reports pain well controlled, Reports ambulating normally Objective - Latest Vital Signs Latest vital signs: Vital Signs Temp Pulse Resp BP Pulse Ox 05/16/18 08:00 98.1 F 94 18 130/78 98 05/16/18 04:00 98.3 F 86 18 99/53 98 05/16/18 00:00 98.3 F 93 18 112/72 98 05/15/18 20:00 97.6 F 91 18 107/67 98 05/15/18 16:00 97.4 F L 105 H 18 109/65 98 05/15/18 11:36 97.8 F 105 H 20 115/64 96 Intake and Output 05/15/18 05/16/18 05/16/18 22:59 06:59 14:59 Intake Total 980 150 600 Balance 980 150 600 Intake: IV 380 150 Lactated Ringers 1,000 ml 80 50 @ 10 mls/hr IV .Q24H JACOB Rx#:[id number] Piperacillin-Tazobactam 3 100 100 .375 gm In Sodium Chloride 0.9% 100 ml @ 25 mls/hr IVPB Q8H JACOB Rx#: [id number] cefTRIAXone 2,000 mg In 100 Sodium Chloride 0.9% 100 ml @ 100 mls/hr IVPB Q24HR JACOB Rx#:[id number] metroNIDAZOLE-NS PMX 500 100 mg In Saline 1 100ml.bag @ 100 mls/hr IVPB Q8H JACOB Rx#:[id number] Oral 600 600 Other: # Voids 2 2 2 - Exam Lungs: bilateral: normal Chest: Normal S1, Normal S2 Extremities: Present: normal Abdomen: Present: normal appearance, soft Uterus: Present: normal, firm - Labs Labs: Abnormal Lab Results - Last 24 Hours (Table) 05/15/18 05/15/18 05/16/18 Range/Units 10:53 10:53 07:48 WBC 31.6 H (3.8-10.6) k/uL RBC 2.56 L (3.80-5.40) m/uL Hgb 7.2 L (11.4-16.0) gm/dL Hct 22.2 L (34.0-46.0) % Neutrophils # 26.1 H (1.3-7.7) k/uL Chloride (98-107) mmol/L Plasma Lactic Acid Sylvester 2.8 H* (0.7-2.0) mmol/L Calcium (8.4-10.2) mg/dL Total Bilirubin (0.2-1.3) mg/dL Delta Bilirubin (0.0-0.2) mg/dL AST 50 H (14-36) U/L ALT 61 H (9-52) U/L Total Protein (6.3-8.2) g/dL Albumin (3.5-5.0) g/dL 05/16/18 Range/Units 07:48 WBC (3.8-10.6) k/uL RBC (3.80-5.40) m/uL Hgb (11.4-16.0) gm/dL Hct (34.0-46.0) % Neutrophils # (1.3-7.7) k/uL Chloride 109 H (98-107) mmol/L Plasma Lactic Acid Sylvester (0.7-2.0) mmol/L Calcium 8.2 L (8.4-10.2) mg/dL Total Bilirubin <0.1 L (0.2-1.3) mg/dL Delta Bilirubin <0.0 L (0.0-0.2) mg/dL AST (14-36) U/L ALT (9-52) U/L Total Protein 4.6 L (6.3-8.2) g/dL Albumin 2.2 L (3.5-5.0) g/dL Microbiology - Last 24 Hours (Table) 05/13/18 15:35 Blood Culture - Preliminary Blood No Growth after 48 hours Assessment and Plan (1) Pyelonephritis Current Visit: Yes Status: Acute Code(s): N12 - TUBULO-INTERSTITIAL NEPHRITIS, NOT SPCF ACUTE OR CHRONIC SNOMED Code(s): 76628999 (2) Twin gestation in third trimester Current Visit: Yes Status: Resolved Code(s): O30.003 - TWIN PREG, UNSP NUM PLCNTA & AMNIO SACS, THIRD TRIMESTER SNOMED Code(s): 52354952 (3) History of delivery Current Visit: Yes Status: Acute Code(s): Z87.51 - PERSONAL HISTORY OF PRE- TERM LABOR SNOMED Code(s): 988347205 Plan: 1. discussed case with Internal medicine and infectious disease. will try to discharge today if she remains stable
[2018-05-16] MEDS ORDERED: ACYCLOVIR 200 MG CAP PO SCH ×2 (09:52→16:00)
[2018-05-16] MEDS: LACTATED RINGERS 1,000 ML IV SCH (11:01)
[2018-05-16 12:22] VITALS: BP 111/69; TEMP 97.1
--- NOTE | 2018-05-16 16:03 | PN ---
PROGRESS NOTE DATE OF SERVICE: 05/16/2018 REASON FOR FOLLOWUP: 1. Pyelonephritis. 2. Endometritis. INTERVAL HISTORY: The patient is currently afebrile. She is feeling better, breathing comfortably. The patient's abdominal pain has improved. No nausea, no vomiting and no diarrhea. No burning or frequency of urine. PHYSICAL EXAMINATION: Blood pressure 111/69 with a pulse of 94, temperature 97.1. She is 100% on room air. General description is a middle-aged female up in the bed in no distress. RESPIRATORY SYSTEM: Unlabored breathing. Clear to auscultation anteriorly. HEART: S1, S2. Regular rate and rhythm. ABDOMEN: Soft. No tenderness. LABS: Hemoglobin 7.2, white count 31.6, BUN of 13, creatinine 0.59. Blood culture has been negative. DIAGNOSTIC IMPRESSION AND PLAN: Patient admitted to hospital with right-sided pyelonephritis, third trimester in a patient who subsequently did have a vaginal delivery with significant jump in the white count, possibly endometritis. This was discussed in detail with the patient's OB, with no evidence clinically of retained products of conception. Patient's white count has improved and the patient is insisting on going home. We will switch her over to Augmentin 875 b.i.d. for 10 days with close outpatient followup. Prescription was sent to the pharmacy. Continue with supportive care. MMODL / IJN: [id number] /
--- NOTE | 2018-05-16 19:34 | P.DS ---
Providers Date of admission: 05/13/18 15:52 Attending physician: Flo Branch Consults: 05/13/18 14:59 Consult Physician Routine Consulting Provider: Cnydy Pandya Consult Reason/Comments: Pyelonephritis; Third trimester Do you want consulting provider notified?: Yes Consult Physician Routine Consulting Provider: Marifer Jonas Consult Reason/Comments: Pyelonephritis; Third trimester Do you want consulting provider notified?: Already Contacted Primary care physician: Hussain [facility] Course: This is a pleasant 27 years old female with a 20 who presents because of chills, and fever of 102.0F at home. Associated with some lower abdominal pain and lower back pain. Patient suspected to have right-sided pyelonephritis. Patient did have vaginal delivery with significant jump in the white cell count, possibly related to endometriosis. However her WBC was trending down from 30 7.3K to 30.6K. R elevated lactic acid on admission of 2.8 came back to normal at 1.9 with hydration. Patient on the day of discharge was feeling better with no chest pain, no dyspnea, no headache. No abdominal pain, no nausea vomiting. No change on her urine or bowel movement habits. No more fever. Dr. Pandya the public health specialist contact me earlier during the day and ask for possible discharge in the patient as she supposed to go yesterday. I spoke with our infectious disease specialist and he cleared the patient for discharge on 10 more days of Augmentin. Patient herself was very eager to go home and see her newborns. I called Dr. Ballard office her PCP to make appointment and he was of the office today, I talked to the patient and told me she will call make appointment by herself, as well as her who works in [employer] and her mother is at bedside who was a nurse of me she has 12/12 care. Patient was recommended if she develops any worsening symptoms to call 911 on come to emergency room. Patient was instructed to follow up with her PCP in one week to recheck her WBC. Patient was cleared by gynecology infectious disease for discharge Problems and management plan was discussed with the patient and she verbalized understanding and acceptance. Mother at bedside and her request Patient was found stable and can be discharged home however she needs follow-up as an outpatient. A shunt agrees with The appointments and the timing made with ID and gynecology team. physical exam Gen.: Patient alert awake and oriented X 3, NOT IN DISTRESS CVS: s1-s2, RRR, no murmur CHEST:bilateral CTA, no wheezing or crepitation Abdomen: Soft, no tenderness, no distention, positive bowel sounds Extremities: No leg edema or induration Time spent more than 35 minutes Patient Condition at Discharge: Serious Plan - Discharge Summary New Discharge Prescriptions: New Acyclovir [Zovirax] 400 mg PO TID #15 cap Ibuprofen [Motrin] 600 mg PO Q6HR PRN #30 tab PRN Reason: Mild Pain Or Fever >= 100.5 Amoxic-Pot Clav 875-125Mg [Augmentin 875-125] 1 tab PO Q12HR #20 tablet Acetaminophen Tab [Tylenol] 650 mg PO Q6HR PRN #30 tab PRN Reason: Mild Pain Or Fever > 100.5 Ferrous Sulfate [Iron (65 MG Elemental)] 325 mg PO BID-W/MEALS #60 tab Sennosides-Docusate Sodium [Senokot-S] 2 each PO BID@0800,2000 PRN #4 tab PRN Reason: Constipation Continue metFORMIN HCL 1,000 mg PO HS Levothyroxine Sodium [Tirosint] 112 mcg PO AC-BRKFST Wrb-Lzqu-Cwilo Acid [-U Capsule (formulary)] 1 tab PO HS Discharge Medication List Levothyroxine Sodium [Tirosint] 112 mcg PO AC-BRKFST 05/13/18 [History] Ste-Soqe-Fqmzl Acid [-U Capsule (formulary)] 1 tab PO HS [History] metFORMIN HCL 1,000 mg PO HS 05/13/18 [History] Acetaminophen Tab [Tylenol] 650 mg PO Q6HR PRN #30 tab 05/16/18 [Rx] Acyclovir [Zovirax] 400 mg PO TID #15 cap 05/16/18 [Rx] Amoxic-Pot Clav 875-125Mg [Augmentin 875-125] 1 tab PO Q12HR #20 tablet [Rx] Ferrous Sulfate [Iron (65 MG Elemental)] 325 mg PO BID-W/MEALS #60 tab 05/16/18 [Rx] Ibuprofen [Motrin] 600 mg PO Q6HR PRN #30 tab 05/16/18 [Rx] Sennosides-Docusate Sodium [Senokot-S] 2 each PO BID@0800,1999 PRN #4 tab [Rx] Follow up Appointment(s)/Referral(s): Brad Ballard MD [Primary Care Provider] - 1 Week (we recommend you check your blood tests with your doctor including WBC, and Hb.) Cyndy Pandya DO [Doctor of Osteopathic Medicine] - 06/08/18 11:15 am Marifer Jonas MD [STAFF PHYSICIAN] - 05/28/18 2:00 pm (pyelonephritis) Activity/Diet/Wound Care/Special Instructions: diabetic 1800 k peri per day activity is limited till you see your doctor Discharge Disposition: HOME SELF-CARE
--- NOTE | 2018-05-17 14:31 | P.EN ---
I called the office of Dr. Ballard today and spoke with him, I discussed the case with him and updated him with instructions and recommendation to monitor her WBC and hemoglobin, and the office will call and make an appointment. He kindly took note of these recommendations
== END 2018-05-16 16:20 | disposition home or self-care (01) | DRG 805 ==
LOC: EC 11:47 → 4FBP 15:52
PROVIDERS: ADMIT Hospitalist; ATTEND Hospitalist
PROC: 10E0XZZ Delivery of Products of Conception, External Approach (ICD-10-PCS; principal; 2018-05-13)
PROC: 0HQ9XZZ Repair Perineum Skin, External Approach (ICD-10-PCS; 2018-05-13)
DX: O75.3 Other infection during labor (principal); O60.14X0 Preterm labor third trimester with preterm delivery third trimester, not applicable or unspecified; Z37.2 Twins, both liveborn; N10 Acute pyelonephritis; O72.1 Other immediate postpartum hemorrhage; O98.52 Other viral diseases complicating childbirth; N30.00 Acute cystitis without hematuria; O30.043 Twin pregnancy, dichorionic/diamniotic, third trimester; O70.0 First degree perineal laceration during delivery; O36.8130 Decreased fetal movements, third trimester, not applicable or unspecified; N71.9 Inflammatory disease of uterus, unspecified; O99.284 Endocrine, nutritional and metabolic diseases complicating childbirth; E03.9 Hypothyroidism, unspecified; O99.89 Other specified diseases and conditions complicating pregnancy, childbirth and the puerperium; E28.2 Polycystic ovarian syndrome; B00.1 Herpesviral vesicular dermatitis; O99.52 Diseases of the respiratory system complicating childbirth; R05 Cough; R09.81 Nasal congestion; Z3A.33 33 weeks gestation of pregnancy; Z87.440 Personal history of urinary (tract) infections; Z79.84 Long term (current) use of oral hypoglycemic drugs; Z79.890 Hormone replacement therapy
CPT/HCPCS: 36415; 74177; 76805; 76810; 80048; 80053; 80076; 81001; 83605; 84450; 84460; 85025; 85027; 87040; 87086; 87502; 88307; 96361; 96365; 99285

== ENCOUNTER → 2018-07-02 | Outpatient (CLI) | payer OTHER ==
[2018-07-03 02:03] LABS: T4, Free (Free Thyroxine) 1.1 ng/dL (0.80-1.80)
== END ==
LOC: LABWHC1 15:31
PROVIDERS: ATTEND Internal Medicine Endocrinology, Diabetes & Metabolism
DX: E03.8 Other specified hypothyroidism (principal)
CPT/HCPCS: 36415; 84439; 84443

== ENCOUNTER → 2018-08-24 | Outpatient (CLI) | payer OTHER ==
[2018-08-24 19:05] LABS: T4, Free (Free Thyroxine) 1.3 ng/dL (0.80-1.80)
== END | disposition home or self-care (01) ==
LOC: LABWHC1 13:27
PROVIDERS: ATTEND Internal Medicine Endocrinology, Diabetes & Metabolism
DX: E03.8 Other specified hypothyroidism (principal)
CPT/HCPCS: 36415; 84439; 84443

== ENCOUNTER → 2019-01-25 | Outpatient (CLI) | payer OTHER | END | disposition home or self-care (01) | LOC: LABWHC1 14:02 | PROVIDERS: ATTEND Internal Medicine Endocrinology, Diabetes & Metabolism | DX: E03.8 Other specified hypothyroidism (principal) | CPT/HCPCS: 36415; 84443 ==